=== PATIENT | male | born 1950 | race Caucasian/White ===

== ENCOUNTER 2018-04-07 06:42 | Day surgery (SDC) | payer MEDICARE, MEDICAID ==
[~2018-04-07 06:42] MED LIST: ACET-907 PO; CEFAZOLIN SODIUM/DEXTROSE,ISO 50 ML IV ONE; CIPR-262 PO; Cyclobenzaprine Hcl PO; DEXA10VI2 PO; DIVA250T4 PO; Ergocalciferol PO; HYDR-3980 PO; LORA-259 PO; PANT40TA2 PO; TRAM50TA PO; Zolpidem Tartrate PO
[2018-04-07] MEDS ORDERED: MORPHINE SULFATE/PF 10 MG/10ML (1MG/ML) AMPUL ONE (08:48)
[2018-04-07] MEDS ORDERED: BUPIVACAINE 0.5 % PF 150 MG/30 ML VIAL ONE (08:48)
[2018-04-07] MEDS ORDERED: FENTANYL PF 250MCG/5ML AMPUL ONE (08:58)
[2018-04-07] MEDS ORDERED: MIDAZOLAM HCL 2 MG/2ML VIAL ONE (08:58)
[2018-04-07] MEDS ORDERED: FAMOTIDINE/PF INJ 20 MG/2 ML VIAL IV ONE (08:59)
[2018-04-07] MEDS ORDERED: ROCURONIUM BROMIDE 50 MG/5 ML ONE (08:59)
[2018-04-07] MEDS ORDERED: METOCLOPRAMIDE HCL 10 MG/2 ML VIAL ONE (09:00)
[2018-04-07] MEDS ORDERED: HYDROCODONE/APAP 5/325MG 1 EACH TABLET ONE (11:06)
== END 2018-04-07 11:40 | disposition home or self-care (01) ==
LOC: DS 06:42
PROVIDERS: ATTEND Student in an Organized Health Care Education/Training Program
DX: M19.011 Primary osteoarthritis, right shoulder (principal); K21.9 Gastro-esophageal reflux disease without esophagitis; G89.29 Other chronic pain; Z79.899 Other long term (current) drug therapy; Z98.890 Other specified postprocedural states
CPT/HCPCS: 23120; A4565; A6402; J0690 ×2; J2250; J2274; J2405; J2704; J2765; J3010; J3490 ×2; Z7610; 88305-TC; 88311-TC